=== PATIENT | female | born 1955 | race Caucasian/White ===

== ENCOUNTER → 2016-06-28 | Outpatient (CLI) | payer OTHER ==
[~2016-06-28] MED LIST: LISI-725 PO; PARO1TAB27 PO; SIMV20TA2 PO
--- NOTE | 2016-06-28 13:56 | DIAGNOSTIC IMAGING REPORT ---
CHEST 2 VIEWS ROUTINE CLINICAL HISTORY: COUGH COMPARISON STUDY: No previous studies for comparison. FINDINGS: The cardiac and mediastinal contours are normal. There is no evidence of focal pulmonary consolidation. There is no evidence of failure. No pleural effusions are visualized.[ IMPRESSION: No active disease in the chest. Electronically signed by: Addi Lowe M.D. 06/28/2016 1:55 PM Dictated Date/Time: 06/28/2016 1:55 PM
== END | disposition home or self-care (01) ==
LOC: C.RADPV 13:26
PROVIDERS: ATTEND Neuromusculoskeletal Medicine & OMM
DX: R05 Cough (principal)

== ENCOUNTER → 2016-08-03 | Outpatient (CLI) | payer OTHER ==
--- NOTE | 2016-08-03 09:52 | DIAGNOSTIC IMAGING REPORT ---
Study: Fusion CT of the sinuses HISTORY: Chronic sinusitis. FINDINGS: Examination is acquired transaxially with multi axial reformatted images. There is complete occlusion of the central ethmoid sinuses. There is soft tissue occlusion of the ostiomeatal units bilaterally. There is minimal mucosal thickening of the maxillary sinuses. Moderate hyperplastic changes identified involving the nasal turbinates. There is a component of nasal occlusive change. Ethmoid sinuses show no significant mucosal thickening. There is no significant mucosal thickening of the frontal sinuses. There are no bony destructive changes. Orbital margins appear to be intact. There is opacification of the right mastoid air cells. Normal aeration is identified involving the left mastoid air cells. IMPRESSION: 1. Near complete occlusion of the central ethmoid air cells. 2. Soft tissue occlusion of the ostiomeatal units bilaterally. 3. Hyperplastic changes of the nasal turbinates creating considerable nasal occlusive change. 4. Opacified right mastoid air cells. 5. No evidence for bony destructive process. Electronically signed by: Nasim Taveras M.D. 08/03/2016 9:51 AM Dictated Date/Time: 08/03/2016 9:47 AM
== END | disposition home or self-care (01) ==
LOC: C.CTS 09:15
DX: J32.9 Chronic sinusitis, unspecified (principal)

== ENCOUNTER → 2017-01-19 | Outpatient (CLI) | payer OTHER ==
[2017-01-19 12:53] LABS: HEMATOCRIT 37.9 % (37-47); MEAN CELL VOLUME 92.7 fL (80-100); MEAN CORPUSCULAR HEMOGLOBIN 31.3 pg (25-34); MEAN CORPUSCULAR HGB CONC 33.8 g/dl (32-36); MEAN PLATELET VOLUME 9.1 fL (7.4-10.4); PLATELET COUNT 248 K/uL (130-400); RED BLOOD COUNT 4.09 M/uL (4.2-5.4)
[2017-01-19 13:01] LABS: PROTHROMBIN TIME (PATIENT) 10.3 SECONDS (9.0-12.0)
[2017-01-19 13:13] LABS: ALT/SGPT 28 U/L (12-78); BLOOD UREA NITROGEN 15 mg/dl (7-18); BUN/CREATININE RATIO 24.3 (10-20); CALCIUM 8.9 mg/dl (8.5-10.1); CARBON DIOXIDE 24 mmol/L (21-32); CHLORIDE 105 mmol/L (98-107); CHOLESTEROL 205 mg/dl (0-200); GLUCOSE 104 mg/dl (70-99); POTASSIUM 4.2 mmol/L (3.5-5.1); SODIUM 138 mmol/L (136-145); TRIGLYCERIDES 150 mg/dl (0-150); VERY LOW DENSITY LIPOPROT CALC 30 mg/dl
[2017-01-19 13:24] LABS: ALB/GLOB RATIO 1.3 (0.9-2); ALKALINE PHOSPHATASE 68 U/L (45-117); AST/SGOT 18 U/L (15-37); CHOLESTEROL/HDL RATIO 4.1; HDL CHOLESTEROL 50 mg/dl; LDL CHOLESTEROL CALCULATED 125 mg/dl
[2017-01-19 13:43] LABS: BASO % 0.5 %; BASO ABS # 0.04 K/uL (0-0.2); COMPLETE YES; EOS % 2.4 %; IG% 0.2 %; LYMPH % 64.3 %; LYMPH ABS # 5.59 K/uL (1.2-3.4); MONO % 4.8 %; NEUT % 27.8 %
== END | disposition home or self-care (01) ==
LOC: C.LABPVFM 08:21
PROVIDERS: ATTEND Neuromusculoskeletal Medicine & OMM
DX: Z00.00 Encounter for general adult medical examination without abnormal findings (principal); Z01.818 Encounter for other preprocedural examination; I10 Essential (primary) hypertension; E78.5 Hyperlipidemia, unspecified; Z11.59 Encounter for screening for other viral diseases

== ENCOUNTER → 2017-01-20 | Outpatient (CLI) | payer OTHER ==
--- NOTE | 2017-01-20 14:35 | MAMMOGRAPHY REPORT ---
BILATERAL DIGITAL SCREENING MAMMOGRAM TOMOSYNTHESIS WITH CAD: 01/20/2017 CLINICAL HISTORY: Routine screening. Patient has no complaints. TECHNIQUE: Breast tomosynthesis in addition to standard 2D mammography was performed. Current study was also evaluated with a Computer Aided Detection (CAD) system. COMPARISON: Comparison is made to exams dated: 04/03/2014 mammogram, and 12/22/2012 and 12/22/2011 and 12/15/2010 and 10/07/2009 mammogram - [facility] Jourdan Wharton. BREAST COMPOSITION: There are scattered areas of fibroglandular density in both breasts. FINDINGS: No suspicious masses, calcifications, or areas of architectural distortion are noted in ei ther breast. There has been no significant interval change compared to prior exams. Scattered bilater al benign-appearing calcifications are not significantly changed. Round 5 mm benign-appearing mass i n the right superior anterior breast is stable compared to multiple prior exams including the 2010 ex am. IMPRESSION: ACR BI-RADS CATEGORY 2: BENIGN There is no mammographic evidence of malignancy. A 1 year screening mammogram is recommended. The pa tient will receive written notification of the results. Approximately 10% of breast cancers are not detected with mammography. A negative mammographic report should not delay biopsy if a clinically suggestive mass is present. Macie Kee M.D. /:01/20/2017 12:07:31 Lye Machine Operator: Maddi SEWELL(Ramesh)(Tabatha), [facility] letter sent: Normal 1/2 BI-RADS Code: ACR BI-RADS Category 2: Benign
== END | disposition home or self-care (01) ==
LOC: C.MAMM 10:22
PROVIDERS: ATTEND Neuromusculoskeletal Medicine & OMM
DX: Z12.31 Encounter for screening mammogram for malignant neoplasm of breast (principal)

== ENCOUNTER → 2017-01-21 | Day surgery (SDC) | payer OTHER ==
[2017-01-04 16:18] VITALS: Ht 160 cm; Wt 81.8 kg
[~2017-01-21] VITALS: Ht 160 cm; Wt 81.8 kg
[~2017-01-21] MED LIST changes: +ALBUTEROL 0.083% NEBU SOLN 3 ML VIAL INH ONE; +ATROPINE SULFATE 0.1 MG/ML 5ML SYR IV PRN; +CEFAZOLIN 2000MG IV PUSH 10 ML IV SCH; +DEXAMETHASONE SOD INJ 4 MG/ML VIAL ONE; +EpHEDrine SULFATE INJ 50 MG/ML AMP IV PRN; +EpINEphrine INJ 1MG/ML AMP 1 MG/ML AMP ONE; +FENTANYL CITRATE INJ 50 MCG/1 ML 2 ML VIAL IV PRN; +FENTANYL CITRATE INJ 50 MCG/1 ML 2 ML VIAL ONE; +LACTATED RINGER'S 1000ML 1,000 ML IV SCH; +LIDOCAINE 4% MPF SOAK 5 ML = 1 DOSE TOP ONE; +LIDOCAINE HCL 2% 2 ML VIAL (20MG/ML) ONE; +LIDOCAINE/EPINEPHRINE 1% INJ 50 ML VIAL ONE; +MIDAZOLAM HCL 1 MG/ML 2ML VIAL ONE; +NURSING VERBAL MED ORDER ONE; +OFLOXACIN 0.3% OP SOLN 5 ML BTL ONE; +ONDANSETRON INJ 2 MG/ML 2 ML VIAL IV PRN; +ONDANSETRON INJ 2 MG/ML 2 ML VIAL ONE; +OXYMETAZOLINE HCL 0.05% NA SPR 15 ML BTL SCH; +PROMETHAZINE HCL INJ 6.25 MG in SODIUM CHLORIDE 0.9% 50ML 50 ML IV PRN; +PROPOFOL IV EMULSION 10 MG/ML 20 ML VIAL IV ONE
--- NOTE | 2017-01-21 11:30 | History and Physical: Surg Cnt ---
History & Physical Date Jan 21, 2017. Chief Complaint RIGHT OTITIS MEDIA, PANSINUSITIS, SEPTAL DEVIATION, BILATERAL INFERIOR TURBINATE HYPERTROPHY History of Present Illness The patient is a 61 year old female with complaints of RIGHT OTITIS MEDIA, PANSINUSITIS, SEPTAL DEVIATION, BILATERAL INFERIOR TURBINATE HYPERTROPHY UNRESPONSIVE TO MAXIMAL MEDICAL RX. Past Medical/Surgical History PMH: GERD, ARTHRITIS, HTN, DEPRESSION, DYSLIPIDEMIA PSH: S/P KNEE ARTHROSCOPY, S/P Additional History Hepatic Disease: No Endocrine Disorder: No Kidney Disease: No Hypertension: No Heart Disease: No Bleeding Tendencies: No Infectious Diseases: No Allergies Coded Allergies: No Known Allergies (Verified , 01/21/17) Home Medications Scheduled Lisinopril (Zestril), 20 MG PO QAM Paroxetine (Paxil), 20 MG PO HS Simvastatin (Zocor), 20 MG PO QPM Physical Examination Skin: warm/dry, no rash Eyes: normal inspection, EOMI, sclerae normal ENT: + pertinent finding (R OM, MILD R DNS, B ITH) Head: normocephalic, atraumatic Neck: supple, no adenopathy, trachea midline Respiratory/Chest: lungs clear, normal breath sounds, no respiratory distress Cardiovascular: regular rate, rhythm, no edema, no murmur Neurologic/Psych: no motor/sensory deficits, alert, normal reflexes, oriented x 3 Diagnosis RIGHT OTITIS MEDIA, PANSINUSITIS, SEPTAL DEVIATION, BILATERAL INFERIOR TURBINATE HYPERTROPHY Plan of Treatment R M&T, IMAGE-GUIDED B FESS AND INFERIOR TURBINATE REDUCTION, POSSIBLE SEPTOPLASTY
--- NOTE | 2017-01-21 12:45 | [facility] Operative Report ---
Operative Report Operative Date Jan 21, 2017. Pre-Operative Diagnosis Right Otitis Media, Pansinusitis, Septal Deviation, Bilateral Inferior Turbinate Hypertrophy Post-Operative Diagnosis Same Procedure(s) Performed Bilateral Endoscopic Sinus Surgery, Septoplasty, Bilateral Inferior Turbinate Reduction, Right Myringotomy and Tube Placement Surgeon Dr. Mir Per Diem Registered Nurse Surgeon(s) None Estimated Blood Loss 25ML Findings 1. MILD R MIDDLE EAR EFFUSION 2. MILD R DNS 3. SEVERE B ITH 4. SEVERE POLYPOID MUCOSAL THICKENING B ETHMOID SINUSES 5. MILD MUCOSAL THICKENING OF ALL OTHER SINUSES 6. L SETH BULLOSA Specimens None I attest to the content of the Intraoperative Record and any orders documented therein. Any exceptions are noted below.
--- NOTE | 2017-01-21 12:47 | Discharge Instructions ---
Discharge Instructions Date of Service Jan 21, 2017. Admission Reason for Admission: Chronic Sinusitis, Right O.m. Discharge Discharge Diagnosis / Problem: SAME Discharge Goals Goal(s): Therapeutic intervention Activity Recommendations Activity Limitations: as noted below 1. DRY RIGHT EAR PRECAUTIONS WHILE TUBE IN PLACE 2. NO NOSE BLOWING FOR 2 WEEKS 3. LIGHT ACTIVITY FOR 2 WEEKS 4. NO DRIVING WHILE ON NORCO . Current Hospital Diet Patient's current hospital diet: Discharge Diet Recommended Diet: Regular Diet Procedures Procedures Performed: Bilateral Endoscopic Sinus Surgery, Septoplasty, Bilateral Inferior Turbinate Reduction, Right Myringotomy and Tube Placement Pending Studies Studies pending at discharge: no Laboratory Results Lipid Panel Test 01/19/17 08:00 Range/Units Triglycerides Level 150 0-150 mg/dl Cholesterol Level 205 H 0-200 mg/dl HDL Cholesterol 50 mg/dl Cholesterol/HDL Ratio 4.1 LDL Cholesterol, Calculated 125 mg/dl Medical Emergencies . Who to Call and When: Medical Emergencies: If at any time you feel your situation is an emergency, please call 911 immediately. . Non-Emergent Contact Non-Emergency issues call your: Surgeon . . "Provider Documentation" section prepared by Adarsh Mir. . VTE Core Measure Inpt VTE Proph given/why not?: SCD's
--- NOTE | 2017-01-21 13:37 | OPERATIVE REPORT ---
DATE OF OPERATION: 01/21/2017 PREOPERATIVE DIAGNOSES: 1. Right otomastoiditis. 2. Bilateral chronic rhinosinusitis. 3. Left lobito bullosa. 4. Right septal deviation. 5. Bilateral inferior turbinate hypertrophy. POSTOPERATIVE DIAGNOSES: 1. Right otomastoiditis. 2. Bilateral chronic rhinosinusitis. 3. Left lobito bullosa. 4. Right septal deviation. 5. Bilateral inferior turbinate hypertrophy. PROCEDURES: Right myringotomy and tube placement. Image guided bilateral endoscopic sinus surgery consisting of: 1. Bilateral maxillary antrostomies. 2. Bilateral complete ethmoidectomies. 3. Bilateral sphenoidotomies. 4. Bilateral balloon sinuplasty assisted frontal sinusotomies. 5. Left lobito bullosa resection. 6. Septoplasty. 7. Bilateral inferior turbinate outfracture and turbinoplasty. SURGEON: Dr. Mir. ANESTHESIA: General endotracheal. ESTIMATED BLOOD LOSS: 25 mL. FINDINGS: 1. Mild right mucoid middle ear effusion. 2. Mild right septal deviation. 3. Bilateral inferior turbinate hypertrophy. 4. Left lobito bullosa. 5. Severe polypoid mucosal thickening involving the bilateral ethmoid sinuses. 6. Mild mucosal thickening involving the bilateral maxillary, frontal, and sphenoid sinuses. SPECIMENS: None. COMPLICATIONS: None. INDICATIONS FOR THE PROCEDURE: The patient is a 61-year-old female with the above-mentioned history which has been refractory to maximum medical therapy. She presents for the above-mentioned procedures on an outpatient elective basis. OPERATION AND FINDINGS: DETAILS OF PROCEDURE: After informed consent had been obtained from the patient, the patient was wheeled to the operating room and placed on the operating table in supine position. Monitors placed. After induction of general endotracheal anesthesia, patient's head was gently turned to the left and a speculum was inserted into the right external ear canal. A myringotomy knife used to make a radial incision in the anterior inferior quadrant of the tympanic membrane and the middle ear space was suctioned free of a mild mucoid middle ear effusion. A silicone Roshan tympanostomy tube was then placed. Floxin drops were instilled into the middle ear space and a cotton ball was placed into the conchal bowl. The patient was then prepped in the usual fashion for image guided sinus surgery. The [employer] headset was placed over the forehead and was registered, calibrated and verified and used throughout the case, especially during the frontal and sphenoid sinus portions of the procedure. Lidocaine and epinephrine pledgets were placed in the bilateral middle meati. The left pledget was removed. A [place] elevator was used to medialize the left middle turbinate. The left middle turbinate was injected with 1% lidocaine with 1:100,000 epinephrine. The lateral nasal wall and uncinate process were then injected with 1% lidocaine with 1:100,000 epinephrine. Lidocaine and epinephrine pledget was then placed in the left middle meatus. The right side was then addressed in a similar fashion. The left-sided pledget was removed. A sickle knife was used to incise the left middle turbinate longitudinally and in the lateral half of the left middle turbinate was removed using straight Iker-Cut forceps and powered instrumentation to perform an endoscopic left lobito bullosa resection. An uncinatectomy was then performed using a [place] elevator, straight Iker-Cut forceps, and powered instrumentation. The natural ostium of the left maxillary sinus was then identified and enlarged anteriorly, inferiorly, and posteriorly using backbiting forceps and powered instrumentation. A complete ethmoidectomy was then performed using powered instrumentation. Using a frontal sinus suction and image guidance, the left frontal sinus was cannulated. This was then removed. A #6 frontal sinus balloon was then inserted and inflated to 12 atmospheres at 3 different locations to dilate the left frontal recess tract. Polypoid mucosal thickening was then removed using powered instrumentation. A transnasal approach to the sphenoid sinus was then undertaken. The sphenoid sinus ostia was enlarged medially and inferiorly using powered instrumentation. Lidocaine and epinephrine pledget was then placed in the left ethmoid sinus. The right side was then addressed in a similar fashion except that a lobito bullosa resection was not needed on this side. Of note, there was severe polypoid mucosal thickening and polyposis in the bilateral ethmoid sinuses. There was mild mucosal thickening involving the bilateral maxillary, sphenoid and frontal sinuses. Next, attention was taken to the nasal septum. The nasal septum was injected with 1% lidocaine with 1:100,000 epinephrine bilaterally, thereby performing hydrodissection of the mucoperichondrial mucoperiosteal flaps. Lidocaine and epinephrine pledgets were then placed in the bilateral nasal cavities and pressure applied. The pledgets were then removed. A #15 scalpel was used to make a left hemitransfixion incision through which the left-sided mucoperichondrial mucoperiosteal flaps were elevated. A #15 scalpel was then used to incise the quadrangular cartilage with care to preserve a 1.5 cm dorsal and caudal strut. The Akbar swivel knife was used to remove the deviated portion of the quadrangular cartilage. A Kristopher-Borden forceps was then used to remove septal bone superiorly to alleviate an anterosuperior and posterior superior right septal deviation. Septal cavity was then suctioned. The septum was found to be midline. The left hemitransfixion incision was closed with several simple interrupted 4-0 chromic sutures. A 4-0 plain gut suture on a Lavelle needle was then used to perform a quilting stitch of the mucoperichondrial mucoperiosteal flaps bilaterally to help prevent septal hematoma. A Herrera elevator was then used to infracture and subsequently outfracture the inferior turbinates bilaterally. These were injected with 1% lidocaine with 1:100,000 epinephrine. A 2.0 mm turbinate blade using powered instrumentation was then used to perform bilateral inferior turbinoplasties in the submucosal fashion. The sinonasal cavities were then suctioned. Merogel dressing was placed in the bilateral ethmoid cavity/middle meati. An orogastric tube was placed and the stomach was suctioned free of air and stomach contents. This marked the end of the case. The patient tolerated the procedure well. There were no apparent complications. The patient was extubated and transferred to recovery room in stable condition. I attest to the content of the Intraoperative Record and any orders documented therein. Any exception s are noted below.
[2017-01-21 14:20] VITALS: TEMP 36.8
--- NOTE | 2017-01-21 14:30 | Anesthesia Progress Nt - [facility] ---
Anesthesia Post Op Note Date & Time Jan 21, 2017 at 14:30 Vital Signs Pain Intensity: 0 Vital Signs Past 12 Hours Date Time Temp Pulse Resp B/P (MAP) Pulse Ox O2 Delivery O2 Flow Rate FiO2 01/21/17 14:20 36.8 86 16 115/59 (77) 99 Room Air 01/21/17 14:15 37 83 16 110/76 94 Room Air 01/21/17 13:26 73 0 100 01/21/17 13:26 74 0 01/21/17 13:25 105/68 01/21/17 13:21 87 13 01/21/17 13:21 86 13 98 01/21/17 13:20 37.1 72 12 105/68 94 Room Air 01/21/17 13:20 110/67 01/21/17 13:16 77 19 112/67 97 01/21/17 13:16 76 19 01/21/17 13:11 75 6 95 01/21/17 13:11 77 6 01/21/17 13:10 118/73 01/21/17 13:06 84 14 01/21/17 13:06 82 14 96 01/21/17 13:05 74 12 01/21/17 13:05 74 12 107/58 99 01/21/17 13:00 80 10 01/21/17 13:00 79 10 102/72 98 01/21/17 12:55 79 16 108/60 97 01/21/17 12:55 80 16 01/21/17 12:50 87 10 119/68 97 01/21/17 12:50 86 10 01/21/17 12:50 36.2 85 20 119/68 98 Diffusion Mask 6 01/21/17 10:16 36.4 65 16 121/85 (97) 97 Room Air Notes Mental Status: alert / awake / arousable, participated in evaluation Pt Amnestic to Procedure: Yes Nausea / Vomiting: adequately controlled Pain: adequately controlled Airway Patency, RR, SpO2: stable & adequate BP & HR: stable & adequate Hydration State: stable & adequate Anesthetic Complications: no major complications apparent
[2017-01-21 14:46] VITALS: BP 121/71; PULSE 76; O2SAT 96
== END | disposition home or self-care (01) ==
LOC: X.SURG 09:53
DX: H70.91 Unspecified mastoiditis, right ear (principal); J32.9 Chronic sinusitis, unspecified; J34.89 Other specified disorders of nose and nasal sinuses; J34.2 Deviated nasal septum; J34.3 Hypertrophy of nasal turbinates; I10 Essential (primary) hypertension; E78.5 Hyperlipidemia, unspecified; K21.9 Gastro-esophageal reflux disease without esophagitis; M19.90 Unspecified osteoarthritis, unspecified site; F32.9 Major depressive disorder, single episode, unspecified; Z79.899 Other long term (current) drug therapy